=== PATIENT | female | born 1945 | race Two or more races ===

== ENCOUNTER 2019-02-05 15:10 | Inpatient (IN) | payer OTHER ==
[~2019-02-05] VITALS: Ht 157.5 cm; Wt 77.1 kg
[2019-02-12] MEDS ORDERED: RESTORIL30 M1 PO (09:14)
[2019-02-12] MEDS ORDERED: NEURONTIN600 MG PO (09:15)
[2019-02-12] MEDS ORDERED: HUMULIN 70100 UNIT/2 SUBCUTANEO (09:15)
[2019-02-22] MEDS ORDERED: OXYC1TAB9 PO (11:38)
[2019-02-22] MEDS ORDERED: PROVENTIL HFA6.7 GM IH (11:39)
== END 2019-02-22 12:17 | disposition home or self-care (01) | DRG 331 ==
LOC: O/R 02-18 05:47 → SURG 02-18 05:47
PROVIDERS: ADMIT Surgery
PROC: 07TB4ZZ Resection of Mesenteric Lymphatic, Percutaneous Endoscopic Approach (ICD-10-PCS; 2019-02-18)
PROC: 0DTU4ZZ Resection of Omentum, Percutaneous Endoscopic Approach (ICD-10-PCS; 2019-02-18)
PROC: 3E0F7GC Introduction of Other Therapeutic Substance into Respiratory Tract, Via Natural or Artificial Opening (ICD-10-PCS; 2019-02-18)
PROC: 4A033R1 Measurement of Arterial Saturation, Peripheral, Percutaneous Approach (ICD-10-PCS; 2019-02-18)
PROC: 0DTF4ZZ Resection of Right Large Intestine, Percutaneous Endoscopic Approach (ICD-10-PCS; principal; 2019-02-18 10:45)
PROC: 4A12X4Z Monitoring of Cardiac Electrical Activity, External Approach (ICD-10-PCS; 2019-02-19)
DX: C18.2 Malignant neoplasm of ascending colon (principal); R59.0 Localized enlarged lymph nodes; G47.33 Obstructive sleep apnea (adult) (pediatric); E11.40 Type 2 diabetes mellitus with diabetic neuropathy, unspecified; F17.200 Nicotine dependence, unspecified, uncomplicated